=== PATIENT | male | born 1995 | race African-American/Black ===

== ENCOUNTER 2019-10-13 01:31 | Emergency (ER) | payer SELFPAY ==
[2019-10-13 02:45] LABS: A TYPE INFLUENZA AG NEGATIVE (NEGATIVE); B INFLUENZA AG NEGATIVE (NEGATIVE)
--- NOTE | 2019-10-13 04:30 | ER Document Report ---
HPI - HPI Time Seen by Provider: 10/13/19 03:38 Pain Level: 4 Context: Patient is a 24-year-old male who presents to the emergency department with a chief complaint of a subjective fever, body aches, and generally not feeling well. Patient also states that he has a cough. His symptoms started 2 days ago. Patient currently works at [employer]. Denies any travel outside the [place]. - EENT EENT: REPORTS: Sore Throat. DENIES: Ear Pain, Eye problems - NEURO Neurology: DENIES: Headache, Weakness, Vision blurred, Dizzinesss / Vertigo - CARDIOVASCULAR Cardiovascular: DENIES: Chest pain - RESPIRATORY Respiratory: REPORTS: Coughing. DENIES: Trouble Breathing - GASTROINTESTINAL Gastrointestinal: DENIES: Abdominal Pain, Black / Bloody Stools - URINARY Urinary: DENIES: Dysuria, Urgency, Frequency - REPRODUCTIVE Reproductive: DENIES: :, Postmenopausal, Abnormal bleeding / discharge - MUSCULOSKELETAL Musculoskeletal: DENIES: Extremity pain Past Medical History - Social History Smoking Status: Current Every Day Smoker Family History: Reviewed & Not Pertinent Patient has suicidal ideation: No Patient has homicidal ideation: No Vertical Provider Document - CONSTITUTIONAL Agree With Documented VS: Yes Exam Limitations: No Limitations General Appearance: No Apparent Distress - INFECTION CONTROL TRAVEL OUTSIDE OF THE [place] IN LAST 30 DAYS: No - HEENT HEENT: Atraumatic, Normocephalic, PERRLA Notes: Edema and erythema noted to nasal mucosa. Course - Re-evaluation Re-evalutation: 10/13/19 04:44 Patient's influenza test is negative. I offered to order a chest x-ray to see if the patient can be tested for COVID 19. He is declining at this time, and states, "I just want to go home." Denies any exposure to anyone positive for COVID 19 Advised the patient to self quarantine if he feels he may be infected by COVID 19. I have a low suspicion for any life threatening etiology at this time. He will be prescribed flonase and cetirizine. Follow-up precautions were given. Verbal discharge instructions were given to the patient. They verbalized understanding. They are stable for discharge. - Vital Signs Vital signs: Temp Pulse Resp BP Pulse Ox 99.6 F 89 16 111/69 96 10/13/19 01:36 10/13/19 01:36 10/13/19 01:36 10/13/19 01:36 10/13/19 01:36 Discharge - Discharge Clinical Impression: Cough Condition: Stable Disposition: HOME, SELF-CARE Additional Instructions: You were seen today in the emergency department for a cough, nausea, and fever. Your symptoms are most consistent with an upper respiratory viral infection. Please take acetaminophen 1000 mg and ibuprofen 600 mg every 6 hours as needed for any body aches or fever. You have been given cetirizine, medication to help with your runny nose. Take 1 tablet every day while you have symptoms. You have also been given Flonase, medication to help with the inflammation in your nose. Place 2 sprays to both nostrils once a day. If you develop a fever greater than 100.4 F while on ibuprofen and acetaminophen, develop shortness of breath, difficulty breathing, or any symptoms that are worrisome to you, please return to the emergency department. Prescriptions: Cetirizine HCl [All Day Allergy] 10 mg PO DAILY #30 tablet Fluticasone Propionate [Flonase Nasal [place] 50 Mcg/[place] 16 gm] 2 sprays NASL DAILY #1 inhaler Forms: Return to Work Referrals: [facility] [Provider Group] - Follow up as needed [facility] [Provider Group] - Follow up as needed
[2019-10-13] MEDS ORDERED: ONDANSETRON ODT 4 MG TAB (6 TAB/ER DISP) PO PRN (04:45)
[2019-10-13 04:51] VITALS: BP 105/65
== END 2019-10-13 05:00 | disposition home or self-care (01) ==
LOC: ER 01:31
DX: R05 Cough (principal); R50.9 Fever, unspecified; M79.10 Myalgia, unspecified site
CPT/HCPCS: 87804; 99283